=== PATIENT | male | born 1985 | race Caucasian/White ===

== ENCOUNTER 2016-09-29 11:49 | Inpatient (IN) | payer BC ==
[~2016-09-29] VITALS: Ht 172.7 cm; Wt 96.0 kg
[~2016-09-29 11:49] MED LIST: BUSPAR5 MG PO; PERCOCET 5/31 TABLET PO; [UNRECOGNIZED DRUG - REMARK]
[2016-09-29] MEDS ORDERED: ALPRAZOLAM0.25 M2 PO (15:08)
[2016-09-29 16:43] LABS: EOSINOPHIL (%) 0.1 % (0-5); HEMATOCRIT 38.7 % (38.0-50.0); IMMATURE GRANULOCYTE (%) 0.2 % (0.0-0.7); IMMATURE GRANULOCYTE COUNT 0.2 K/uL; LYMPHOCYTE COUNT 0.6 K/uL (1.0-2.8); MCH 33.8 PG (29.0-34.0); MCHC 34.4 G/DL (30.0-36.0); MCV 98.5 FL (86-99); MEAN PLAT.VOLUME 8.9 uM^3 (9.0-12.4); MONOCYTE COUNT 0.4 K/uL (0-0.8); NEUTROPHIL (%) 89.9 % (45-76); NEUTROPHIL COUNT 9.5 K/uL (1.8-6.4); PLATELET COUNT 257 K/uL (156-360); RBC DIS.WIDTH-CV 11.5 % (11.8-14.6); RBC DIS.WIDTH-SD 40.2 % (39-53); RED BLOOD COUNT 3.93 M/uL (4.00-5.50); WHITE BLOOD COUNT 10.5 K/uL (4.1-10.2)
[2016-09-29 16:53] LABS: CHLORIDE 104 mEq/L (99-109); POTASSIUM 3.8 mEq/L (3.7-5.4); SODIUM 138 mEq/L (136-147)
[2016-09-29 16:55] LABS: GLUCOSE 93 mg/dL (70-99)
[2016-09-29 16:56] LABS: ANION GAP 11 MEQ/L (2-14)
[2016-09-29 16:59] LABS: GFR ESTIMATE (CALCULATED) > 59 mL/min/
[2016-09-29 17:00] LABS: UREA NITROGEN (BUN) 9 mg/dL (9-23)
[2016-09-29 17:15] LABS: BILIRUBIN NEGATIVE; BLOOD NEGATIVE; COLOR YELLOW ((YELLOW)); GLUCOSE (STRIP) NEGATIVE; KETONES NEGATIVE; LEUKOCYTES NEGATIVE; NITRITE NEGATIVE; PH, URINE 7.5 (5-8); PROTEIN (STRIP) TRACE; SPECIFIC GRAVITY 1.035 (1.000-1.030)
[2016-09-29 17:16] LABS: ADD MIUA? NO; UCUL ADDED? NO
[2016-09-29 19:23] LABS: CREATINE KINASE 261 IU/L (1-294)
[2016-09-29 19:40] LABS: ERTH.SED.RATE 45 MM/HR (0-15)
[2016-09-29 19:46] LABS: C-REACTIVE PROTEIN 55.7 MG/L (0-10); SAMPLE HEMOLYSIS CHECK 0; SAMPLE ICTERIC CHECK 0; SAMPLE LIPEMIA CHECK 0
[2016-09-29 20:23] VITALS: BP 153/84
[2016-09-30] VITALS: BP 140/68
[2016-09-30 03:10] VITALS: BP 128/59
[2016-09-30 06:25] LABS: HEMATOCRIT 38.7 % (38.0-50.0); MCH 33.4 PG (29.0-34.0); MCHC 33.9 G/DL (30.0-36.0); MCV 98.7 FL (86-99); MEAN PLAT.VOLUME 8.7 uM^3 (9.0-12.4); PLATELET COUNT 242 K/uL (156-360); RBC DIS.WIDTH-CV 11.7 % (11.8-14.6); RBC DIS.WIDTH-SD 40.9 % (39-53); RED BLOOD COUNT 3.92 M/uL (4.00-5.50)
[2016-09-30 06:29] LABS: EOSINOPHIL (%) 0 % (0-5); IMMATURE GRANULOCYTE (%) 2.1 % (0.0-0.7); IMMATURE GRANULOCYTE COUNT 3.7 K/uL; MONOCYTE (%) 5.5 % (3-12); NEUTROPHIL (%) 86.4 % (45-76)
[2016-09-30 06:30] LABS: CHLORIDE 106 mEq/L (99-109); POTASSIUM 3.7 mEq/L (3.7-5.4); SODIUM 136 mEq/L (136-147)
[2016-09-30 06:33] LABS: ANION GAP 9 MEQ/L (2-14)
[2016-09-30 06:35] LABS: GFR ESTIMATE (CALCULATED) > 59 mL/min/
[2016-09-30 06:36] LABS: GLUCOSE 119 mg/dL (70-99); UREA NITROGEN (BUN) 10 mg/dL (9-23)
[2016-09-30 06:38] LABS: WHITE BLOOD COUNT 17.4 K/uL (4.1-10.2)
[2016-09-30 07:59] LABS: HEMATOLOGY COMMENT 1 SMEAR COMPATIBLE; USER ID BLP
[2016-09-30 08:01] VITALS: BP 170/105
[2016-09-30 11:35] VITALS: BP 119/55
[2016-09-30 16:24] VITALS: BP 125/85
[2016-09-30 20:44] LABS: METH RESISTANT S AUREUS PCR NEGATIVE (NEGATIVE)
[2016-09-30 20:58] LABS: PROBE CHECK PASS; SPECIMEN PROCESSING CONTROL PASS
[2016-09-30 23:00] VITALS: BP 135/77
[2016-10-01 03:58] VITALS: BP 142/81
[2016-10-01 06:52] LABS: HEMATOCRIT 35.2 % (38.0-50.0); MCH 33.8 PG (29.0-34.0); MCHC 34.1 G/DL (30.0-36.0); MCV 99.2 FL (86-99); MEAN PLAT.VOLUME 9.4 uM^3 (9.0-12.4); PLATELET COUNT 232 K/uL (156-360); RBC DIS.WIDTH-CV 11.9 % (11.8-14.6); RBC DIS.WIDTH-SD 42.6 % (39-53); RED BLOOD COUNT 3.55 M/uL (4.00-5.50); WHITE BLOOD COUNT 15.4 K/uL (4.1-10.2)
[2016-10-01 07:17] LABS: ANION GAP 9 MEQ/L (2-14); CHLORIDE 104 MEQ/L (99-109); GFR ESTIMATE (CALCULATED) > 59 mL/min/; GLUCOSE 101 mg/dL (70-99); POTASSIUM 3.6 MEQ/L (3.7-5.4); SAMPLE HEMOLYSIS CHECK 0; SAMPLE ICTERIC CHECK 0; SAMPLE LIPEMIA CHECK 0; SODIUM 136 MEQ/L (136-147); UREA NITROGEN (BUN) 12 mg/dL (9-23)
[2016-10-01 08:15] VITALS: BP 149/76
[2016-10-01 08:40] LABS: MAGNESIUM 1.7 mg/dl (1.3-2.7)
[2016-10-01 12:31] VITALS: BP 169/95
[2016-10-01 16:52] VITALS: BP 145/80
[2016-10-01 19:30] VITALS: BP 158/97
[2016-10-02 00:15] VITALS: BP 144/88
[2016-10-02 03:15] VITALS: BP 168/81
[2016-10-02 07:58] VITALS: BP 146/107
[2016-10-02 11:22] VITALS: BP 179/88
[2016-10-02 16:10] VITALS: BP 136/67
[2016-10-02 20:00] VITALS: BP 138/80
[2016-10-03] VITALS: BP 137/80
[2016-10-03 04:00] VITALS: BP 152/86
[2016-10-03 07:35] VITALS: BP 156/90
[2016-10-03 11:40] LABS: EOSINOPHIL (%) 0.8 % (0-5); EOSINOPHIL COUNT 0.1 K/uL (0-0.3); HEMATOCRIT 38.1 % (38.0-50.0); IMMATURE GRANULOCYTE (%) 0.7 % (0.0-0.7); IMMATURE GRANULOCYTE COUNT 0.1 K/uL; LYMPHOCYTE COUNT 1.2 K/uL (1.0-2.8); MCH 34.4 PG (29.0-34.0); MCHC 35.4 G/DL (30.0-36.0); MCV 97.2 FL (86-99); MONOCYTE (%) 5.2 % (3-12); MONOCYTE COUNT 0.6 K/uL (0-0.8); NEUTROPHIL (%) 82.2 % (45-76); NEUTROPHIL COUNT 8.9 K/uL (1.8-6.4); RBC DIS.WIDTH-CV 12.2 % (11.8-14.6); RBC DIS.WIDTH-SD 43.1 % (39-53); RED BLOOD COUNT 3.92 M/uL (4.00-5.50); WHITE BLOOD COUNT 10.9 K/uL (4.1-10.2)
[2016-10-03 11:45] LABS: MEAN PLAT.VOLUME 9.2 uM^3 (9.0-12.4); PLATELET COUNT 302 K/uL (156-360)
[2016-10-03 12:03] LABS: ANION GAP 7 MEQ/L (2-14); CHLORIDE 101 MEQ/L (99-109); GFR ESTIMATE (CALCULATED) > 59 mL/min/; GLUCOSE 96 mg/dL (70-99); POTASSIUM 3.2 MEQ/L (3.7-5.4); SAMPLE HEMOLYSIS CHECK 0; SAMPLE ICTERIC CHECK 0; SAMPLE LIPEMIA CHECK 0; SODIUM 137 MEQ/L (136-147); UREA NITROGEN (BUN) 7 mg/dL (9-23)
[2016-10-03 15:08] VITALS: BP 140/80
[2016-10-03 20:03] VITALS: BP 142/85
[2016-10-03 23:56] VITALS: BP 153/92
[2016-10-04] VITALS (7 sets, daily range): BP systolic 136–160; BP diastolic 69–103
[2016-10-04 06:08] LABS: EOSINOPHIL (%) 1.5 % (0-5); EOSINOPHIL COUNT 0.1 K/uL (0-0.3); HEMATOCRIT 35.3 % (38.0-50.0); IMMATURE GRANULOCYTE (%) 0.9 % (0.0-0.7); IMMATURE GRANULOCYTE COUNT 0.1 K/uL; LYMPHOCYTE COUNT 1.2 K/uL (1.0-2.8); MCHC 33.7 G/DL (30.0-36.0); MCV 97.8 FL (86-99); MEAN PLAT.VOLUME 9.2 uM^3 (9.0-12.4); MONOCYTE (%) 8.5 % (3-12); MONOCYTE COUNT 0.7 K/uL (0-0.8); NEUTROPHIL (%) 73.4 % (45-76); NEUTROPHIL COUNT 5.9 K/uL (1.8-6.4); PLATELET COUNT 278 K/uL (156-360); RBC DIS.WIDTH-CV 12.2 % (11.8-14.6); RED BLOOD COUNT 3.61 M/uL (4.00-5.50)
[2016-10-04 06:29] LABS: ANION GAP 8 MEQ/L (2-14); CHLORIDE 102 MEQ/L (99-109); GFR ESTIMATE (CALCULATED) > 59 mL/min/; GLUCOSE 85 mg/dL (70-99); POTASSIUM 3.4 MEQ/L (3.7-5.4); SAMPLE HEMOLYSIS CHECK 0; SAMPLE ICTERIC CHECK 0; SAMPLE LIPEMIA CHECK 0; SODIUM 136 MEQ/L (136-147); UREA NITROGEN (BUN) 6 mg/dL (9-23)
[2016-10-05 03:47] VITALS: BP 126/60; BP 148/82
[2016-10-05 07:16] VITALS: BP 146/85
[2016-10-05] MEDS ORDERED: PERCOCET 5/31 TABLET PO (08:47)
[2016-10-05 15:32] VITALS: BP 146/87
[2016-10-05 19:08] VITALS: BP 152/91
[2016-10-06] VITALS: BP 146/84
[2016-10-06 08:00] VITALS: BP 137/86
[2016-10-06 09:24] LABS: ANION GAP 8 MEQ/L (2-14); CHLORIDE 104 MEQ/L (99-109); GFR ESTIMATE (CALCULATED) > 59 mL/min/; GLUCOSE 87 mg/dL (70-99); HEMATOCRIT 36.4 % (38.0-50.0); MCH 32.6 PG (29.0-34.0); MCHC 33.2 G/DL (30.0-36.0); MCV 98.1 FL (86-99); MEAN PLAT.VOLUME 8.7 uM^3 (9.0-12.4); PLATELET COUNT 345 K/uL (156-360); POTASSIUM 3.7 MEQ/L (3.7-5.4); RBC DIS.WIDTH-CV 12.6 % (11.8-14.6); RBC DIS.WIDTH-SD 44.7 % (39-53); RED BLOOD COUNT 3.71 M/uL (4.00-5.50); SAMPLE HEMOLYSIS CHECK 0; SAMPLE ICTERIC CHECK 0; SAMPLE LIPEMIA CHECK 0; SODIUM 140 MEQ/L (136-147); UREA NITROGEN (BUN) 3 mg/dL (9-23)
[2016-10-06 09:26] LABS: WHITE BLOOD COUNT 5.3 K/uL (4.1-10.2)
[2016-10-06 16:00] VITALS: BP 136/82
[2016-10-06 23:10] VITALS: BP 140/52
[2016-10-07 06:54] LABS: HEMATOCRIT 35.1 % (38.0-50.0); MCHC 33.3 G/DL (30.0-36.0); MCV 98.9 FL (86-99); MEAN PLAT.VOLUME 8.9 uM^3 (9.0-12.4); PLATELET COUNT 364 K/uL (156-360); RBC DIS.WIDTH-CV 12.9 % (11.8-14.6); RBC DIS.WIDTH-SD 46.3 % (39-53); RED BLOOD COUNT 3.55 M/uL (4.00-5.50); WHITE BLOOD COUNT 4.9 K/uL (4.1-10.2)
[2016-10-07 08:00] VITALS: BP 152/100
[2016-10-07 09:07] LABS: ANION GAP 6 MEQ/L (2-14); CHLORIDE 104 MEQ/L (99-109); GFR ESTIMATE (CALCULATED) > 59 mL/min/; GLUCOSE 85 mg/dL (70-99); POTASSIUM 3.5 MEQ/L (3.7-5.4); SAMPLE HEMOLYSIS CHECK 0; SAMPLE ICTERIC CHECK 0; SAMPLE LIPEMIA CHECK 0; SODIUM 138 MEQ/L (136-147); UREA NITROGEN (BUN) 4 mg/dL (9-23)
== END 2016-10-07 19:45 | disposition home health service (06) | DRG 603 ==
LOC: EME 11:49 → 4SOUTH 18:28 → EDOF 18:28 → 4SOUTH 20:28
PROVIDERS: Emergency Medicine; Hospitalist; Internal Medicine; Internal Medicine Infectious Disease; Nurse Practitioner Adult Health; Physician Assistant; Student in an Organized Health Care Education/Training Program
DX: L03.115 Cellulitis of right lower limb (principal); E87.6 Hypokalemia; R51 Headache
CPT/HCPCS: 73720; 76882; 76937; 80048; 80202; 81003; 82550; 83605; 83735; 85025; 85027; 85651; 86140; 87040; 87641; 99281; 99285; C1894; J0690; J1170; J1885; J2405; J3370; J7030

== ENCOUNTER 2016-10-13 21:23 | Emergency (ER) | payer BC ==
[~2016-10-13] VITALS: Ht 172.7 cm; Wt 92.8 kg
[~2016-10-13 21:23] MED LIST changes: +ALPRAZOLAM0.25 M2 PO
[2016-10-13 22:11] LABS: HEMATOCRIT 35.3 % (38.0-50.0); MCH 33.3 PG (29.0-34.0); MCHC 32.9 G/DL (30.0-36.0); MCV 101.4 FL (86-99); MEAN PLAT.VOLUME 8.7 uM^3 (9.0-12.4); PLATELET COUNT 523 K/uL (156-360); RBC DIS.WIDTH-CV 12.9 % (11.8-14.6); RBC DIS.WIDTH-SD 47.1 % (39-53); RED BLOOD COUNT 3.48 M/uL (4.00-5.50); WHITE BLOOD COUNT 7.2 K/uL (4.1-10.2)
[2016-10-13 22:18] LABS: CHLORIDE 104 mEq/L (99-109); SODIUM 140 mEq/L (136-147)
[2016-10-13 22:19] LABS: GLUCOSE 93 mg/dL (70-99)
[2016-10-13 22:20] LABS: INTER. NORMALIZED RATIO 1.1; PROTHROMBIN TIME 11.7 (9.2-11.2); PTT 35.1 (25-32)
[2016-10-13 22:21] LABS: ANION GAP 15 MEQ/L (2-14)
[2016-10-13 22:23] LABS: GFR ESTIMATE (CALCULATED) > 59 mL/min/
[2016-10-13 22:24] LABS: UREA NITROGEN (BUN) 9 mg/dL (9-23)
[2016-10-13 22:31] LABS: TROP-I INTERPRETATION NEGATIVE; TROPONIN-I < 0.01 ng/mL (0.0-0.30)
[2016-10-14] MEDS ORDERED: LOVENOX120 MG/0.8 SC (00:13)
[2016-10-14 00:34] VITALS: BP 145/85
== END 2016-10-14 00:34 | disposition home or self-care (01) ==
LOC: EME 21:23
PROVIDERS: Emergency Medicine
DX: R07.89 Other chest pain (principal); I82.621 Acute embolism and thrombosis of deep veins of right upper extremity; R06.02 Shortness of breath
CPT/HCPCS: 71020; 71275; 80048; 84484; 85027; 85610; 85730; 93005; 99281; 99285; J1650